=== PATIENT | male | born 1960 | race Caucasian/White ===

== ENCOUNTER → 2020-08-09 14:14 | Outpatient (CLI) | payer OTHER, SELFPAY ==
[2020-08-09 15:15] LABS: Basophils % 0.5 % (0.1-2.0); Eosinophils # 0.3 K/mm3 (0.0-0.4); Eosinophils % 4.9 % (0.1-12.0); Hematocrit 47.5 % (42.0-52.0); Lymphocytes # 1.3 K/mm3 (0.7-4.5); Lymphocytes % 20.1 % (10-50); Mean Corpuscular HGB Conc 33.7 g/dL (31.8-35.4); Mean Corpuscular Hemoglobin 31.9 pg (27.0-31.2); Mean Corpuscular Volume 94.4 fl (80-94); Mean Platelet Volume 8.6 fl (7.4-10.4); Monocytes # 0.3 K/mm3 (0.1-1.0); Monocytes % 5.2 % (1.7-9.3); Neutrophils # 4.6 K/mm3 (1.8-7.8); Neutrophils % 69.4 % (37.0-80.0); Platelet Count 167 K/mm3 (142-424); Red Blood Count 5.03 M/mm3 (4.60-6.20); Red Cell Distribution Width 14.3 % (11.5-17.5); White Blood Count 6.6 K/mm3 (4.8-10.8)
[2020-08-09 15:35] LABS: Chloride 100 mmol/L (98-107); Potassium 4.3 mmoL/L (3.5-5.1); Sodium 134 mmol/L (136-145)
[2020-08-09 15:36] LABS: Hemoglobin A1C 8.7 % (4.0-6.0)
[2020-08-09 15:38] LABS: Alanine Aminotransferase 51 U/L (12-78); Albumin Level 4.3 g/dl (3.5-5.0); Albumin/Globulin Ratio 1.4 (1.1-1.8); Alkaline Phosphatase 112 U/L (38-126); Anion Gap 14.3 mEq/L (5-15); Aspartate Amino Transferase 45 U/L (17-59); Bilirubin,Total 0.6 mg/dl (0.2-1.3); Blood Urea Nitrogen 12 mg/dl (9-20); Carbon Dioxide 24 mmol/L (22.0-30.0); Cholesterol 124 mg/dl (140-200); Estimated Glomerular Filt Rate 114 ml/min (>60); GFR (African American) 138 ML/MIN (>60); Total Protein,Serum 7.3 g/dl (6.3-8.2); Triglycerides 326 mg/dl (30-150); VLDL Cholesterol 65 mg/dL (0-40)
[2020-08-09 15:39] LABS: Calcium 9.5 mg/dl (8.4-10.2); Glucose 248 mg/dl (74-100); HDL Cholesterol 25 mg/dl (40-60)
[2020-08-09 15:50] LABS: Direct LDL Cholesterol 52.92 mg/dL (100-129)
[2020-08-09 18:17] LABS: Prostate Specific Ag Screen 4.3 ng/ml (0.0-4.0)
== END ==
PROVIDERS: Visit Provider Family Medicine
DX: E11.9 Type 2 diabetes mellitus without complications (principal); R97.20 Elevated prostate specific antigen [PSA]; Z79.84 Long term (current) use of oral hypoglycemic drugs; Z79.899 Other long term (current) drug therapy
CPT/HCPCS: 80053; 80061; 83036; 85025; G0103

== ENCOUNTER 2022-11-18 11:54 | Emergency (ER) | payer OTHER, SELFPAY ==
[2022-11-18] VITALS (7 sets, daily range): BP systolic 130–194; BP diastolic 78–86; PULSE 81–99; RESP 18–19; TEMP 36.6; O2SAT 97–100; BMI 30.5
--- NOTE | 2022-11-18 11:58 | CT_ITS ---
FINAL REPORT TECHNIQUE: Axial images were obtained of the lumbar spine by computed tomography. Coronal and sagittal reconstruction process performed. This study was performed with techniques to keep radiation doses as low as reasonably achievable (ALARA). Individualized dose reduction techniques using automated exposure control or adjustment of mA and/or kV according to the patient''s size were employed. CLINICAL HISTORY: trauma, hit by tree FINDINGS: Lumbar vertebrae show normal height. There is mild anterior osteophyte formation throughout the lumbar vertebra. There is no malalignment. L1-2: Mild to moderate diffuse disc bulge is present. There is mild spinal and bilateral neural foraminal narrowing. L2-3: Mild diffuse disc bulge is present with mild bilateral neural foraminal narrowing. L3-4: Mild diffuse disc bulge is present with mild bilateral neural foraminal narrowing. L4-5: Mild diffuse disc bulge is present with mild bilateral neural foraminal narrowing. L5-S1: No significant disc bulge or protrusion. IMPRESSION: Disc bulges from L1-2 through L4-5. Moderate hypertrophic changes of degenerative disc disease. No fracture is identified. Reviewed, Interpreted and Dictated by Pedro Scott MD Transcribed by Charley Pineda Authenticated and [facility]
--- NOTE | 2022-11-18 11:58 | CT_ITS ---
FINAL REPORT TECHNIQUE: Axial images were obtained of the thoracic spine by computed tomography. Coronal and sagittal reconstruction process performed. This study was performed with techniques to keep radiation doses as low as reasonably achievable (ALARA). Individualized dose reduction techniques using automated exposure control or adjustment of mA and/or kV according to the patient's size were employed. CLINICAL HISTORY: trauma, hit by tree FINDINGS: Thoracic vertebrae show normal height. There is ossification of the anterior longitudinal ligaments. There are prominent osteophytes along the right anterior aspect of the thoracic spine. Anteriorly at the T9-10 level is a prominent osteophyte. There is a linear lucency extending through the base of the osteophyte concerning for an acute fracture of the osteophyte. Finding is best seen on sagittal images 41-46 and axial images 89-92. The remaining levels are unremarkable. IMPRESSION: Fractured osteophyte at T9-10. Reviewed, Interpreted and Dictated by Pedro Scott MD Transcribed by Charley Pineda Authenticated and [facility]
--- NOTE | 2022-11-18 11:58 | CT_ITS ---
FINAL REPORT TECHNIQUE: Axial images were performed through the brain. This study was performed with techniques to keep radiation doses as low as reasonably achievable, (ALARA). Individualized dose reduction techniques using automated exposure control or adjustment of mA and/or kV according to the patient''s size were employed. CLINICAL HISTORY: trauma, hit by tree FINDINGS: There is mild atrophy. The ventricles are normal in size for the degree of atrophy. There is no extra-axial fluid or midline shift. There is no evidence of acute hemorrhage, mass-effect, or edema. There are mild changes of chronic bilateral maxillary sinusitis. IMPRESSION: No acute intracranial process. Reviewed, Interpreted and Dictated by Pedro Scott MD Transcribed by Charley Pineda Authenticated and [facility][1]
--- NOTE | 2022-11-18 11:58 | CT_ITS ---
FINAL REPORT TECHNIQUE: Axial images were obtained of the cervical spine by computed tomography. Coronal and sagittal reconstruction process performed. This study was performed with techniques to keep radiation doses as low as reasonably achievable (ALARA). Individualized dose reduction techniques using automated exposure control or adjustment of mA and/or kV according to the patient''s size were employed. CLINICAL HISTORY: trauma, hit by tree FINDINGS: There are moderate hypertrophic changes of degenerative disc disease throughout the cervical spine. There is moderate anterior osteophyte formation. The cervical vertebral body heights are normal. There are bilateral fractures of the posterior lamina at C5 and C6. The right C5 fracture appears mildly comminuted. The facets are properly aligned. There is prominent osteophyte formation at C5-6 with moderate right neural foraminal narrowing. IMPRESSION: Bilateral fractures of the posterior lamina at C5 and C6 which appear to be acute. Reviewed, Interpreted and Dictated by Pedro Scott MD Transcribed by Charley Pineda Authenticated and [facility]
--- NOTE | 2022-11-18 12:01 | XR_ITS ---
FINAL REPORT CLINICAL HISTORY: trauma, hit by tree, soa COMPARISON: 05/18/2017 FINDINGS: SINGLE-VIEW CHEST The heart size is normal. The mediastinum is normal. The lungs are clear. There is no pneumothorax. IMPRESSION: No acute cardiopulmonary process. Reviewed, Interpreted and Dictated by Pedro Scott MD Transcribed by Charley Pineda Authenticated and [facility]
--- NOTE | 2022-11-18 12:01 | PC.NURSE ---
DR BRAY AT BEDSIDE, PT PLACED IN C-COLLAR
--- NOTE | 2022-11-18 12:04 | PC.NURSE ---
PT TO RADIOLOGY
--- NOTE | 2022-11-18 12:30 | PC.NURSE ---
Rounded on patient, no other needs at this time. Pt sitting up in wheelchair with call light in reach
--- NOTE | 2022-11-18 12:45 | HMH.EDGENADL ---
Discharge Plan Disposition Patient Disposition: Home, Self-Care Prescriptions Prescriptions: New oxycodone 5 mg capsule 5 mg PO Q6H PRN (Reason: pain) Qty: 12 0RF No Action triamcinolone acetonide 0.5 % cream 1 applic topical BID Qty: 15 0RF mupirocin 2 % ointment 1 applic topical BID Qty: 15 0RF lisinopril 10 mg tablet 10 mg PO DAILY Qty: 30 1RF metformin 500 mg tablet 500 mg PO BID Qty: 60 1RF Referrals Follow up/Referrals: Jamie Camacho MD [Primary Care Provider] - See instructions Activity Restrictions/Add. Instructions Additional Instructions/Restrictions: Follow-up with [facility] neurosurgical clinic within the next 2 to 4 weeks. They have been consulted and will call you in the next few days for the exact time and day of the appointment. Return to emergency department for worsening numbness weakness or tingling in your arms or legs or any other concerns within the next 8 hours Clinical Impressions Clinical Impression: Cervical spine fracture Discharge ED Provider: Santi De Paz General Adult HPI General Chief complaint: PAIN Stated complaint: AO@Work 11/18 1130 Neck/back pain tree fell on PT Time Seen by Provider: 11/18/22 12:00 Mode of Arrival: Wheelchair Limitations: No Limitations Description of Symptoms (Recalled from ER Triage Doc. 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 PAIN TO NECK AND LOW BACK. DENIES LOC. History of Present Illness HPI narrative: 62-year-old male presents after being hit in the back of the neck by a limb. He apparently was cutting down a tree and it swung around and hit him more on the back while he was on a tractor. No loss of consciousness headache numbness weakness or tingling arms or legs abdominal pain or chest pain. He has pain to his upper neck. Posteriorly. No other injuries. Related Data Previous Rx's Medication Instructions Recorded lisinopril 10 mg tablet 10 mg PO DAILY #30 tabs 10/12/22 metformin 500 mg tablet 500 mg PO BID #60 tabs 10/12/22 mupirocin 2 % topical ointment 1 applic topical BID #15 grams 10/12/22 triamcinolone acetonide 0.5 % 1 applic topical BID #15 grams 10/12/22 topical cream oxycodone 5 mg capsule 5 mg PO Q6H PRN pain #12 caps 11/18/22 Allergies Allergy/AdvReac Type Severity Reaction Status Date / Time No Known Allergies Allergy Verified 10/12/22 15:36 PFSH PFS Disclaimer: The information contained in this section may have been updated after the patient was seen, as this information can be updated by other users. Medical History (Updated 11/18/22 @ 14:17 by Santi De Paz MD) Diabetes Hypertension Family History (Updated 11/18/22 @ 12:09 by Anila Sanchez RN) Other No significant family history Social History (Updated 11/18/22 @ 12:09 by Anila Sanchez RN) Smoking Status: Never smoker alcohol intake: current substance use type: denies use current occupational status: unemployed Travel in the last 8 weeks: None housing: house ROS Obtained: Yes All systems reviewed & no additional complaints except as documented Constitutional Constitutional: Denies excessive sweating and Denies headache(s) Eyes Eyes: Denies eye pain ENT Ears, Nose, Mouth, and Throat: Denies headache(s) Cardiovascular Cardiovascular: Denies diaphoresis Respiratory Respiratory: Denies cough Gastrointestinal Gastrointestingal: Denies coffee ground emesis Genitourinary Male Genitourinary: Denies flank pain Musculoskeletal Musculoskeletal: Denies joint swelling Integumentary/Breasts Skin/Breast: Denies new lesions Neurologic Neurologic: Denies headache(s) Endocrine Endocrine: Denies excessive sweating Hematologic/Lymphatic Henatologic/Lymphatic: Denies easy bleeding Physical Exam General General appearance: alert and in no apparent distress Eye Eye exam: Present PERRL and EOMI ENT ENT exam: Present normal exam, normal oropharynx and other (Mild tenderness to posterior neck an
--- NOTE | 2022-11-18 13:13 | PC.NURSE ---
1310 PT CONTINUES TO C/O PAIN, NOTIFIED. PT MEDICATED PER EMAR
--- NOTE | 2022-11-18 13:25 | PC.NURSE ---
calling [facility] to page a spine dr to speak with dr briones in ed.. rad has already power shared images to [facility]
--- NOTE | 2022-11-18 13:41 | PC.NURSE ---
FAMILY UPDATED AT THIS TIME
--- NOTE | 2022-11-18 13:42 | PC.NURSE ---
DR BRAY SPEAKING WITH DR ADAMS AT [facility]
--- NOTE | 2022-11-18 13:54 | PC.NURSE ---
DR BRAY SPEAKING WITH DR BERKOWITZ AT [facility]
--- NOTE | 2022-11-18 14:13 | PC.NURSE ---
DR BRAY AT BEDSIDE TO UPDATE AND FAMILY
--- NOTE | 2022-11-19 09:42 | PC.NURSE ---
[facility] call attempted, voicemail at this time, no message left
== END 2022-11-18 14:30 | disposition home or self-care (01) ==
PROVIDERS: Emergency Provider Emergency Medicine; PCP Family Medicine
DX: S12.400A Unspecified displaced fracture of fifth cervical vertebra, initial encounter for closed fracture (principal); S12.500A Unspecified displaced fracture of sixth cervical vertebra, initial encounter for closed fracture; W20.8XXA Other cause of strike by thrown, projected or falling object, initial encounter
CPT/HCPCS: 70450; 71045; 72125; 72128; 72131; 96372; 99285

== ENCOUNTER → 2023-06-22 23:00 | Outpatient (CLI) | payer MEDICARE, OTHER, SELFPAY ==
[2023-06-22 18:33] LABS: Microscopic, Urine URINE MICROSCOPIC (MICROSCOPIC)
[2023-06-22 18:49] LABS: Basophils % 0.2 % (0.1-2.0); Eosinophils # 0.2 K/mm3 (0.0-0.4); Hematocrit 44.2 % (42.0-52.0); Hemoglobin 15.1 g/dL (14.1-18.0); Lymphocytes % 19.7 % (10-50); Mean Corpuscular Hemoglobin 33.1 pg (27.0-31.2); Mean Corpuscular Volume 97.2 fl (80-94); Mean Platelet Volume 8.9 fl (7.4-10.4); Monocytes # 0.4 K/mm3 (0.1-1.0); Monocytes % 6.9 % (1.7-9.3); Neutrophils # 3.6 K/mm3 (1.8-7.8); Neutrophils % 69.1 % (37.0-80.0); Platelet Count 116 K/mm3 (142-424); Red Blood Count 4.55 M/mm3 (4.60-6.20); Red Cell Distribution Width 14.9 % (11.5-17.5); White Blood Count 5.3 K/mm3 (4.8-10.8)
[2023-06-22 19:16] LABS: Hemoglobin A1C 6.4 % (4.0-6.0)
[2023-06-22 19:46] LABS: Alanine Aminotransferase 54 U/L (12-78); Albumin Level 4.1 g/dl (3.5-5.0); Albumin/Globulin Ratio 1.4 (1.1-1.8); Alkaline Phosphatase 114 U/L (38-126); Anion Gap 12.9 mEq/L (5-15); Aspartate Amino Transferase 59 U/L (17-59); Bilirubin,Total 0.6 mg/dl (0.2-1.3); Blood Urea Nitrogen 8 mg/dl (9-20); Calcium 8.7 mg/dl (8.4-10.2); Carbon Dioxide 22 mmol/L (22.0-30.0); Chloride 103 mmol/L (98-107); Chol/HDL Ratio 7.5 (1-3.5); Cholesterol 187 mg/dl (140-200); Estimated Glomerular Filt Rate 135 ml/min (>60); GFR (African American) 164 ML/MIN (>60); Glucose 185 mg/dl (74-100); HDL Cholesterol 25 mg/dl (40-60); Potassium 3.9 mmoL/L (3.5-5.1); Sodium 134 mmol/L (136-145); Total Protein,Serum 7.1 g/dl (6.3-8.2); Triglycerides 279 mg/dl (30-150); VLDL Cholesterol 56 mg/dL (0-40)
[2023-06-22 19:59] LABS: Direct LDL Cholesterol 107.98 mg/dL (100-129)
[2023-06-22 20:01] LABS: Appearance,Urine CLEAR (Clear); Bilirubin,Urine Negative (Negative); Blood, Urine Negative (Negative); Color,Urine YELLOW (Yellow); Glucose,Urine (UA) 1+ (Negative); Ketones,Urine Negative (Negative); Leukocyte Esterase,Urine Negative (Negative); Nitrate,Urine Negative (Negative); PH,Urine 6.5 (5.0-8.5); Protein,Urine Negative (Negative)
[2023-06-22 20:03] LABS: Free T4 (Free Thyroxine) 1.09 ng/dl (0.78-2.19)
[2023-06-22 20:04] LABS: 25-OH Vitamin D, Total 45.1 ng/mL (30-100)
[2023-06-22 20:16] LABS: Prostate Specific Ag Screen 5.5 ng/ml (0.0-4.0); Thyroid Stimulating Hormone 2.88 uIU/mL (0.465-4.68)
[2023-06-22 20:19] LABS: Creatinine,Urine Random 84 mg/dL (Not Estab.)
[2023-06-22 20:22] LABS: Microalbumin/Creatinine Ratio 16.9
[2023-06-22 20:35] LABS: Vitamin B12 308 pg/mL (239-931)
[2023-06-22 20:39] LABS: Squamous Epithelial Cell,Urine Occasional #/hpf (0-5)
== END ==
PROVIDERS: PCP Nurse Practitioner Family; Visit Provider Nurse Practitioner Family
DX: R53.83 Other fatigue (principal); E11.9 Type 2 diabetes mellitus without complications; E78.5 Hyperlipidemia, unspecified; E55.9 Vitamin D deficiency, unspecified; I10 Essential (primary) hypertension; Z79.84 Long term (current) use of oral hypoglycemic drugs; Z12.5 Encounter for screening for malignant neoplasm of prostate; Z79.899 Other long term (current) drug therapy
CPT/HCPCS: 80053; 80061; 81001; 82043; 82306; 82570; 82607; 83036; 84439; 84443; 85025; G0103

== ENCOUNTER → 2023-06-30 10:44 | Outpatient (CLI) | payer MEDICARE, OTHER, SELFPAY ==
[2023-06-30 11:03] LABS: Basophils % 0.6 % (0.1-2.0); Eosinophils # 0.4 K/mm3 (0.0-0.4); Eosinophils % 6.5 % (0.1-12.0); Hematocrit 46.9 % (42.0-52.0); Hemoglobin 16.1 g/dL (14.1-18.0); Lymphocytes # 1.1 K/mm3 (0.7-4.5); Lymphocytes % 19.3 % (10-50); Mean Corpuscular HGB Conc 34.2 g/dL (31.8-35.4); Mean Corpuscular Hemoglobin 33.6 pg (27.0-31.2); Mean Corpuscular Volume 98.1 fl (80-94); Mean Platelet Volume 8.4 fl (7.4-10.4); Monocytes # 0.4 K/mm3 (0.1-1.0); Monocytes % 6.4 % (1.7-9.3); Neutrophils # 3.6 K/mm3 (1.8-7.8); Neutrophils % 67.2 % (37.0-80.0); Platelet Count 128 K/mm3 (142-424); Red Blood Count 4.78 M/mm3 (4.60-6.20); Red Cell Distribution Width 14.6 % (11.5-17.5); White Blood Count 5.4 K/mm3 (4.8-10.8)
== END ==
PROVIDERS: PCP Nurse Practitioner Family; Visit Provider Internal Medicine Medical Oncology
DX: D69.6 Thrombocytopenia, unspecified (principal)
CPT/HCPCS: 36415; 82746; 85025

== ENCOUNTER 2023-08-09 10:39 | Outpatient (CLI) | payer MEDICARE, OTHER, SELFPAY ==
[2023-08-09 11:25] LABS: Blood Urea Nitrogen 10 mg/dl (9-20); Estimated Glomerular Filt Rate 113 ml/min (>60); GFR (African American) 137 ML/MIN (>60)
[2023-08-10 09:24] LABS: PSA, Free 2.67 ng/mL; Prostate Specific Ag 6.4 ng/mL (0.0-4.0)
[2023-08-17 23:15] LABS: Free Testosterone (Direct) 6.2 pg/mL (6.6-18.1)
== END 2023-08-09 23:59 ==
LOC: LAB 10:41
PROVIDERS: PCP Nurse Practitioner Family; Visit Provider Urology
DX: R97.20 Elevated prostate specific antigen [PSA] (principal)
CPT/HCPCS: 36415; 82565; 84153; 84154; 84270; 84520

== ENCOUNTER 2023-09-04 10:54 | Emergency (ER) | payer MEDICARE, OTHER, SELFPAY ==
[2023-09-04 11:10] VITALS: BP 119/76; PULSE 86; RESP 19; TEMP 36.7; O2SAT 100; BMI 31.1
--- NOTE | 2023-09-04 11:58 | EXP.UTC ---
Discharge Plan Disposition Patient Disposition: Home, Self-Care Condition: Good Prescriptions Prescriptions: New methylprednisolone [Methylpred DP] 4 mg tablets,dose pack See Rx Instructions .ROUTE .COMPLEX Qty: 21 0RF Rx Instructions: 4 mg orally No Action metformin 500 mg tablet 500 mg PO BID Qty: 60 1RF lisinopril 20 mg tablet 20 mg PO DAILY Qty: 90 1RF tadalafil [Cialis] 5 mg tablet 5 mg PO DAILY Qty: 30 2RF Referrals Follow up/Referrals: Allyson Ramos APRN [Primary Care Provider] - See instructions Activity Restrictions/Add. Instructions Additional Instructions/Restrictions: Follow up with Primary care provider on Wednesday. Clinical Impressions Clinical Impression: Sudden hearing loss Qualifiers: Laterality: right Qualified Code(s): H91.21 - Sudden idiopathic hearing loss, right ear Instructions Patient Instructions: DI for Hearing Loss Discharge ED Provider: Roxana Wade [facility] HPI General Stated complaint: ear complaints Mode of Arrival: Ambulatory Source of Information: Patient Limitations: No Limitations Time Seen by Provider: 09/04/23 11:47 Description of Symptoms (Recalled from Triage Doc. by RN): PATIENT STATES HE CAN'T HEAR OUT OF RIGHT EAR HEENT Symptoms (Recalled from RN notes): Yes Resp Symptoms (Recalled from RN notes): No Skin Symptoms (Recalled from RN notes): No MS Symptoms (Recalled from RN notes): No Functional Status (Recalled from RN notes): WNL History of Present Illness Provider Complaint: Pt reports that he had tripped and fell on his butt yesterday and seems to have lost hearing in his right ear. He reports that he has had ringing in his ears for some time but now he can't hear anything at all in that ear. Related Data Previous Rx's Medication Instructions Recorded metformin 500 mg tablet 500 mg PO BID #60 tabs 10/12/22 lisinopril 20 mg tablet 20 mg PO DAILY #90 tabs 06/22/23 tadalafil 5 mg tablet (Cialis) 5 mg PO DAILY #30 tabs 08/09/23 methylprednisolone 4 mg tablets in See Rx Instructions .Route 09/04/23 a dose pack (Methylpred DP) .COMPLEX #21 tabs Allergies Allergy/AdvReac Type Severity Reaction Status Date / Time No Known Allergies Allergy Verified 08/09/23 09:58 Worker's Comp Is this a Worker's Comp case?: No [facility] Disclaimer: The information contained in this section may have been updated after the patient was seen, as this information can be updated by other users. Medical History Diabetes Hypertension Family History Other No significant family history Social History Smoking Status: Never smoker alcohol intake: current substance use type: denies use current occupational status: unemployed Travel in the last 8 weeks: None housing: house ROS Obtained: Yes All systems reviewed & no additional complaints except as documented Constitutional Constitutional: Reports system reviewed and no additional complaints, except as documented Eyes Eyes: Reports system reviewed and no additional complaints, except as documented ENT Ears, Nose, Mouth, and Throat: Reports system reviewed and no additional complaints, except as documented and Reports hearing loss Cardiovascular Cardiovascular: Reports system reviewed and no additional complaints, except as documented Respiratory Respiratory: Reports system reviewed and no additional complaints, except as documented Gastrointestinal Gastrointestingal: Reports system reviewed and no additional complaints, except as documented Genitourinary Male Genitourinary: Reports system reviewed and no additional complaints, except as documented Musculoskeletal Musculoskeletal: Reports system reviewed and no additional complaints, except as documented Integumentary/Breasts Skin/Breast: Reports system reviewed and no additional complaints, except as documented Neurologic Neurologic: Reports system reviewed and no additional complaints, except as documented Endocrine Endocrine: Reports system reviewed and no additional complaints, except as documented Hematologic/Lymphatic Henatologic/Lymphatic: Reports system reviewed and no additional complaints, except as documented Allergic/Immunologic Allergic/Immunologic: Reports system reviewed and no additional complaints, except as documented Physical Exam General General appearance: alert and in no apparent distress Head Head exam: atraumatic and normocephalic Eye Eye exam: Present normal appearance ENT ENT exam: Present normal oropharynx, mucous membranes moist, TM's normal bilaterally and normal external ear exam Expanded ENT Exam External ear exam: Present normal external inspection Nose exam: Absent sinus tenderness Nasal speculum exam: Bilateral: normal Mouth exam: Present normal external inspection Throat exam: Present normal inspection Neck Neck exam: Present normal inspection Chest Chest inspection: Present normal inspection and symmetric chest wall rise Respiratory Respiratory exam: Present normal lung sounds bilaterally Cardiovascular Cardiovascular exam: Present regular rate and normal rhythm Abdominal Exam Abdominal exam: Present soft and normal bowel sounds Extremities Exam Extremities exam: Present normal inspection Back Exam Back exam: Present normal inspection Neurological Exam Neurological exam: Present alert and oriented X3 Psychiatric Psychiatric exam: Present normal affect and normal mood Skin Skin exam: Present warm, dry and intact Lymphatic Lymphatic Findings: no adenopathy Medical Decision Making Clark Inquiry Pt receiving controlled substance: No Clark was queried for this patient: No Vital Signs: 09/04/23 11:10 Temperature 98.1 F Temperature Source Oral Pulse Rate [Left Brachial] 86 Respiratory Rate 19 Blood Pressure [Left Arm] 119/76 Blood Pressure Mean [Left Arm] 90 Blood Pressure Source [Left Arm] Automatic Cuff Blood Pressure Position [Left Arm] Sitting 02 Sat by Pulse Oximetry 100 Oxygen Delivery Method Room Air
[2023-09-04 12:07] VITALS: BP 119/76; PULSE 86; RESP 19; TEMP 36.7; O2SAT 100
== END 2023-09-04 12:15 | disposition home or self-care (01) ==
PROVIDERS: Emergency Provider Nurse Practitioner Family; PCP Nurse Practitioner Family
DX: H91.21 Sudden idiopathic hearing loss, right ear (principal); I10 Essential (primary) hypertension; E11.9 Type 2 diabetes mellitus without complications; Z79.84 Long term (current) use of oral hypoglycemic drugs
CPT/HCPCS: 99204; 99212; G0463

== ENCOUNTER 2023-09-30 08:59 | Outpatient (CLI) | payer MEDICARE, OTHER, SELFPAY ==
[2023-09-30 09:33] LABS: Basophils % 0.5 % (0.1-2.0); Eosinophils # 0.3 K/mm3 (0.0-0.4); Eosinophils % 5.9 % (0.1-12.0); Hemoglobin 14.5 g/dL (14.1-18.0); Lymphocytes # 0.9 K/mm3 (0.7-4.5); Lymphocytes % 20.4 % (10-50); Mean Corpuscular Hemoglobin 33.5 pg (27.0-31.2); Mean Corpuscular Volume 101.6 fl (80-94); Mean Platelet Volume 8.6 fl (7.4-10.4); Monocytes # 0.4 K/mm3 (0.1-1.0); Neutrophils # 2.9 K/mm3 (1.8-7.8); Neutrophils % 65.2 % (37.0-80.0); Platelet Count 117 K/mm3 (142-424); Red Blood Count 4.33 M/mm3 (4.60-6.20); Red Cell Distribution Width 14.8 % (11.5-17.5); White Blood Count 4.4 K/mm3 (4.8-10.8)
== END 2023-09-30 23:59 ==
PROVIDERS: PCP Nurse Practitioner Family; Visit Provider Internal Medicine Medical Oncology
DX: D69.6 Thrombocytopenia, unspecified (principal)
CPT/HCPCS: 36415; 85025

== ENCOUNTER 2023-10-20 08:15 | Outpatient (CLI) | payer MEDICARE, OTHER, SELFPAY ==
[2023-10-20 08:39] LABS: Basophils # 0.1 K/mm3 (0-0.2); Basophils % 1.1 % (0.1-2.0); Eosinophils # 0.3 K/mm3 (0.0-0.4); Eosinophils % 5.5 % (0.1-12.0); Hematocrit 47.9 % (42.0-52.0); Hemoglobin 15.8 g/dL (14.1-18.0); Lymphocytes % 19.2 % (10-50); Mean Corpuscular HGB Conc 32.9 g/dL (31.8-35.4); Mean Corpuscular Hemoglobin 33.1 pg (27.0-31.2); Mean Corpuscular Volume 100.5 fl (80-94); Mean Platelet Volume 8.8 fl (7.4-10.4); Monocytes # 0.3 K/mm3 (0.1-1.0); Monocytes % 5.5 % (1.7-9.3); Neutrophils # 3.6 K/mm3 (1.8-7.8); Neutrophils % 68.6 % (37.0-80.0); Platelet Count 110 K/mm3 (142-424); Red Blood Count 4.76 M/mm3 (4.60-6.20); Red Cell Distribution Width 14.6 % (11.5-17.5); White Blood Count 5.3 K/mm3 (4.8-10.8)
[2023-10-20 08:53] LABS: Activated Partial Thrombo Time 33.5 seconds (22.8-30.6); INR 1.17 (0.9-1.1); Prothrombin Time 12.5 seconds (10.1-12.5)
[2023-10-20 09:18] LABS: Blood Urea Nitrogen 10 mg/dl (9-20); Estimated Glomerular Filt Rate 113 ml/min (>60); GFR (African American) 137 ML/MIN (>60)
== END 2023-10-20 23:59 | disposition home or self-care (01) ==
LOC: LAB 08:16
PROVIDERS: PCP Nurse Practitioner Family; Visit Provider Internal Medicine Medical Oncology
DX: D69.6 Thrombocytopenia, unspecified (principal)
CPT/HCPCS: 36415; 82565; 84520; 85025; 85610; 85730

== ENCOUNTER 2023-10-22 07:07 | Outpatient (CLI) | payer MEDICARE, OTHER, SELFPAY ==
[2023-10-22] VITALS (11 sets, daily range): BP systolic 119–154; BP diastolic 62–91; PULSE 71–91; RESP 16–18; TEMP 36.6–36.9; O2SAT 96–98; BMI 30.4
--- NOTE | 2023-10-22 07:15 | CT_ITS ---
FINAL REPORT CLINICAL HISTORY: .bone marrow biopsy 2mg versed/50mcg fentanyl FINDINGS: CT-guided bone marrow aspiration and core biopsy History: Thrombocytopenia. Attending radiologist: Dr. Jaramillo Physician Ordnance Officer: Aubrey Asif PA-C. Findings: The patient was placed ion the CT table in the prone position. The patient's left iliac bone was localized under direct CT guidance. The skin was marked appropriately and prepped and draped in a sterile fashion. Skin was anesthetized with 1% lidocaine. Under direct CT guidance, access to the left iliac bone was obtained. Bone marrow aspirate was obtained. In addition, a large bone marrow core biopsy was obtained. The patient tolerated the procedure well and there are no immediate complications. PROCEDURAL SEDATION: 2 mg of IV Versed and 50 mcg of Fentanyl were administered. Continuous vital sign monitoring was used. An RN was present during the sedation process. Overall sedation time was 15 minutes. IMPRESSION: Technically successful CT-guided bone marrow aspirate and core biopsy as detailed above. Films reviewed , interpreted and dictated by Dr. Jaramillo. Transcribed by Aubrey Asif PA-C. Reviewed, Interpreted and Dictated by Rony Jaramillo III, MD Transcribed by ALIA Herbert Authenticated and [facility]
[2023-10-22 07:38] LABS: POC Glucose,Bedside 164 (70-110)
== END 2023-10-22 09:35 | disposition home or self-care (01) ==
PROVIDERS: PCP Nurse Practitioner Family; Visit Provider Internal Medicine Medical Oncology
DX: D69.6 Thrombocytopenia, unspecified (principal); R97.20 Elevated prostate specific antigen [PSA]; E11.9 Type 2 diabetes mellitus without complications; Z79.84 Long term (current) use of oral hypoglycemic drugs
CPT/HCPCS: 38221; 77012; 82962

== ENCOUNTER 2023-12-19 12:42 | Emergency (ER) | payer MEDICARE, OTHER, SELFPAY ==
[2023-12-19 12:50] VITALS: BP 137/73; PULSE 68; RESP 18; TEMP 36.8; O2SAT 97; BMI 30.1
--- NOTE | 2023-12-19 12:58 | ED_ITS ---
Discharge Plan Disposition Patient Disposition: Home, Self-Care Condition: Good Prescriptions Prescriptions: New methylprednisolone 4 mg Tablets,Dose Pack 4 mg PO DIRECTED 6 Days Qty: 21 0RF Rx Instructions: Take 1 pack as directed for 6 days triamcinolone acetonide 0.1 % cream 1 applic topical BID PRN (Reason: itching) Qty: 30 0RF diphenhydramine HCl 25 mg capsule 25 mg PO Q6HP PRN (Reason: Itching) Qty: 30 0RF No Action lisinopril 20 mg tablet 20 mg PO DAILY Qty: 90 1RF Referrals Follow up/Referrals: Allyson Ramos APRN [Primary Care Provider] - See instructions Activity Restrictions/Add. Instructions Additional Instructions/Restrictions: Try to identify and avoid contact with the offending substance (poison sophie). Don't start the oral steroids until tomorrow. The diphenhydramine (benedryl) will make you drowsy, so don't drive or operate heavy machinery after taking it. Don't put the topical steroids (triamcinolone) on your face or your groin. Follow up with your regular doctor. GO TO THE ER FOR ANY WORSENING SYMPTOMS OR CONCERNS Clinical Impressions Clinical Impression: Contact dermatitis Instructions Patient Instructions: DI for Contact Dermatitis, Methylprednisolone Injection Discharge ED Provider: Wayne Lyle [facility] General Stated complaint: itching, rash Time Seen by Provider: 12/19/23 12:58 History of Present Illness Provider Complaint: He states that for the past 2 days he has had worsening itchy rash on his arms and trunk. He has been around poison sophie. Related Data Previous Rx's Medication Instructions Recorded lisinopril 20 mg tablet 20 mg PO DAILY #90 tabs 06/22/23 diphenhydramine HCl 25 mg capsule 25 mg PO Q6HP PRN Itching #30 caps 12/19/23 methylprednisolone 4 mg tablets in 4 mg PO DIRECTED 6 days #21 tabs 12/19/23 a dose pack triamcinolone acetonide 0.1 % 1 applic topical BID PRN itching 12/19/23 topical cream #30 grams Allergies Allergy/AdvReac Type Severity Reaction Status Date / Time No Known Allergies Allergy Verified 12/19/23 13:01 [facility] Disclaimer: The information contained in this section may have been updated after the patient was seen, as this information can be updated by other users. Medical History (Updated 12/19/23 @ 13:25 by Wayne Lyle APRN) Elevated PSA Thrombocytopenia Diabetes Hypertension Surgical History No history of previous surgery Family History Other No significant family history Social History Smoking Status: Never smoker alcohol intake: never substance use type: denies use current occupational status: unemployed and retired Travel in the last 8 weeks: None housing: house ROS Obtained: Yes All systems reviewed & no additional complaints except as documented Constitutional Constitutional: Denies chills and Denies fever(s) Eyes Eyes: Denies eye discharge ENT Ears, Nose, Mouth, and Throat: Denies dizziness, Denies otalgia and Denies sore throat Cardiovascular Cardiovascular: Denies chest pain Respiratory Respiratory: Denies shortness of breath, Denies chest congestion, Denies cough, Denies stridor and Denies wheezing Gastrointestinal Gastrointestingal: Denies nausea or vomiting Musculoskeletal Musculoskeletal: Reports system reviewed and no additional complaints, except as documented and Denies arthralgias Integumentary/Breasts Skin/Breast: Reports as per HPI and Reports rash Neurologic Neurologic: Denies dizziness and Denies paresthesias Allergic/Immunologic Allergic/Immunologic: Denies wheezing Physical Exam General General appearance: alert and in no apparent distress Head Head exam: atraumatic, normocephalic and normal inspection Eye Eye exam: Present normal appearance, PERRL and EOMI ENT ENT exam: Present normal exam, normal oropharynx, mucous membranes moist, TM's normal bilaterally and normal external ear exam Neck Neck exam: Present normal inspection, full ROM and trachea midline; Absent meningismus or lymphadenopathy Chest Chest inspection: Present normal inspection and symmetric chest wall rise; Absent tenderness Respiratory Respiratory exam: Present normal lung sounds bilaterally; Absent respiratory distress Cardiovascular Cardiovascular exam: Present regular rate and normal rhythm; Absent JVD Abdominal Exam Abdominal exam: Present soft and normal bowel sounds; Absent distention, tenderness or guarding Extremities Exam Extremities exam: Present normal inspection, full ROM and normal capillary refill; Absent calf tenderness Back Exam Back exam: Present normal inspection; Absent tenderness Neurological Exam Neurological exam: Present alert and oriented X3 Psychiatric Psychiatric exam: Present normal affect and normal mood Skin Skin exam: Present rash Lymphatic Lymphatic Findings: no adenopathy Medical Decision Making Medical Records Medical records reviewed: No I reviewed the patient's medical records. Clark Inquiry Pt receiving controlled substance: No
[2023-12-19] MEDS: METHYLPREDNISOLONE SOD SUCC 125MG VIAL 125 MG IM (13:24)
[2023-12-19 13:57] VITALS: BP 137/73; PULSE 68; RESP 18; TEMP 36.8; O2SAT 97
== END 2023-12-19 13:57 | disposition home or self-care (01) ==
PROVIDERS: Emergency Provider Nurse Practitioner Family; PCP Nurse Practitioner Family
DX: L25.9 Unspecified contact dermatitis, unspecified cause (principal)
CPT/HCPCS: 96372; 99212; 99214; G0463

== ENCOUNTER 2024-12-18 09:20 | Outpatient (CLI) | payer MEDICARE, OTHER, SELFPAY ==
[2024-12-18 18:03] LABS: Basophils % 0.4 % (0.1-2.0); Eosinophils # 0.2 Kmm3 (0.0-0.4); Eosinophils % 3.6 % (0.1-12.0); Hematocrit 44.6 % (42.0-52.0); Hemoglobin 14.9 g/dL (14.1-18.0); Immature Granulocytes # 0.02 10^3uL; Immature Granulocytes % 0.4 %; Lymphocytes # 0.9 K/mm3 (0.7-4.5); Lymphocytes % 16.8 % (10-50); Mean Corpuscular HGB Conc 33.4 g/dL (31.8-35.4); Mean Corpuscular Hemoglobin 31.6 pg (27.0-31.2); Mean Corpuscular Volume 94.5 fl (80-94); Mean Platelet Volume 10.7 fl (7.4-10.4); Monocytes # 0.3 K/mm3 (0.1-1.0); Monocytes % 5.4 % (1.7-9.3); Neutrophils # 3.8 K/mm3 (1.8-7.8); Neutrophils % 73.4 % (37.0-80.0); Nucleated Red Blood Cells # 0 10^3/uL; Nucleated Red Blood Cells % 0 %; Platelet Count 103 K/mm3 (142-424); Red Blood Count 4.72 M/mm3 (4.60-6.20); Red Cell Distribution Width 14.1 % (11.5-17.5); Red Cell Distribution Width-SD 49.3 fL; White Blood Count 5.2 K/mm3 (4.8-10.8)
[2024-12-18 18:29] LABS: Alanine Aminotransferase 52 U/L (12-78); Albumin Level 3.9 g/dl (3.5-5.0); Albumin/Globulin Ratio 1.2 (1.1-1.8); Alkaline Phosphatase 132 U/L (38-126); Anion Gap 12.3 mEq/L (5-15); Aspartate Amino Transferase 52 U/L (17-59); Bilirubin,Total 1.3 mg/dl (0.2-1.3); Blood Urea Nitrogen 14 mg/dl (9-20); Calcium 9.4 mg/dl (8.4-10.2); Carbon Dioxide 22 mmol/L (22.0-30.0); Chloride 106 mmol/L (98-107); Chol/HDL Ratio 5.5 (1-3.5); Cholesterol 127 mg/dl (140-200); Estimated Glomerular Filt Rate 97 ml/min (>60); GFR (African American) 117 ML/MIN (>60); Globulin 3.3 g/dL (1.3-3.2); Glucose 232 mg/dl (74-100); HDL Cholesterol 23 mg/dl (40-60); Potassium 4.3 mmoL/L (3.5-5.1); Sodium 136 mmol/L (136-145); Total Protein,Serum 7.2 g/dl (6.3-8.2); Triglycerides 211 mg/dl (30-150); VLDL Cholesterol 42 mg/dL (0-40)
[2024-12-18 18:40] LABS: Direct LDL Cholesterol 57.38 mg/dL (100-129)
[2024-12-18 18:48] LABS: 25-OH Vitamin D, Total 35.4 ng/mL (30-100)
[2024-12-18 18:58] LABS: Microalbumin/Creatinine Ratio 14.2
[2024-12-18 18:59] LABS: Creatinine,Urine Random 69 mg/dL (Not Estab.)
[2024-12-18 19:00] LABS: Prostate Specific Ag Screen 5.4 ng/ml (0.0-4.0); Thyroid Stimulating Hormone 2.91 uIU/mL (0.465-4.68)
== END 2024-12-18 23:59 | disposition home or self-care (01) ==
LOC: LAB.DROPOF 12-19 13:17
PROVIDERS: PCP Family Medicine; Visit Provider Family Medicine
DX: D69.6 Thrombocytopenia, unspecified (principal); E11.9 Type 2 diabetes mellitus without complications; I10 Essential (primary) hypertension; E55.9 Vitamin D deficiency, unspecified; E78.5 Hyperlipidemia, unspecified; Z12.5 Encounter for screening for malignant neoplasm of prostate
CPT/HCPCS: 80053; 80061; 82043; 82306; 82570; 83036; 84443; 85025; G0103